=== PATIENT | male | born 1940 | race Caucasian/White ===

== ENCOUNTER 2022-01-30 13:23 | Inpatient (IN) | payer MEDICARE, OTHER ==
[~2022-01-30] VITALS: Ht 162.6 cm; Wt 63.5 kg
--- NOTE | 2022-01-30 13:35 | NUR ---
, at bedside to examine pt.
[2022-01-30] MEDS ORDERED: SPIR25TA6 PO (13:51)
[2022-01-30] MEDS ORDERED: LOSA100T31 PO (13:51)
[2022-01-30] MEDS ORDERED: COLC0.6C3 PO (13:51)
[2022-01-30] MEDS ORDERED: NITR0.4T48 SL (13:51)
[2022-01-30] MEDS ORDERED: METH2.5T PO (13:51)
[2022-01-30] MEDS ORDERED: AMLO10TA59 PO (13:51)
[2022-01-30] MEDS ORDERED: CARV12.52 PO (13:51)
[2022-01-30] MEDS ORDERED: EZET10TA15 PO (13:51)
[2022-01-30] MEDS ORDERED: CLON0.1T PO (13:51)
[2022-01-30] MEDS ORDERED: CLOP75TA15 PO (13:51)
[2022-01-30] MEDS ORDERED: ROSU40TA PO (13:51)
[2022-01-30] MEDS ORDERED: ASPIRIN 325 MG TABLET PO ONE (14:30)
[2022-01-30] MEDS ORDERED: FAMOTIDINE. 20 MG/2 ML VIAL IV ONE ×2 (14:30→14:36)
[2022-01-30] MEDS ORDERED: LIDOCAINE VISCUS 2% 15 ML UDC MM ONE (14:30)
[2022-01-30] MEDS ORDERED: MAG HYDROX/AL HYDROX/SIMETH 30 ML LIQUID UDC PO ONE (14:30)
[2022-01-30 14:34] LABS: HEMATOCRIT 42.2 % (36.7-47.1); MEAN CORPUSCULAR VOLUME 90.9 fL (73.0-96.2); PLATELET COUNT (AUTO) 218 K/uL (152-348)
[2022-01-30] MEDS ORDERED: ACETAMINOPHEN ES 500 MG TABLET ONE (14:36)
[2022-01-30] MEDS ORDERED: LIDOCAINE VISCUS 2% 15 ML UDC ONE (14:37)
[2022-01-30] MEDS ORDERED: ASPIRIN 325 MG TABLET ONE (14:37)
[2022-01-30] MEDS ORDERED: MAG HYDROX/AL HYDROX/SIMETH 30 ML LIQUID UDC ONE (14:37)
--- NOTE | 2022-01-30 14:39 | NUR ---
Patient taken down to CT.
[2022-01-30] MEDS ORDERED: ACETAMINOPHEN 325 MG TABLET PO ONE (14:45)
[2022-01-30] MEDS ORDERED: IV NORMAL SALINE 500 ML BAG IV ONE (14:45)
[2022-01-30 14:57] LABS: ALANINE AMINOTRANSFERASE 42 U/L (16-63); ALKALINE PHOSPHATASE 66 U/L (50-136); ASPARTATE AMINOTRANSFERASE 14 U/L (15-37); BILIRUBIN,DIRECT 0.2 mg/dL (0.0-0.2); BILIRUBIN,TOTAL 0.6 mg/dL (0.2-1.0); CARBON DIOXIDE 28 mmol/L (21-32); CHLORIDE 102 mmol/L (98-107); CREATININE 1.5 mg/dL (0.6-1.3); GLUCOSE 88 mg/dL (74-106); POTASSIUM 4.1 mmol/L (3.5-5.1); TOTAL PROTEIN, SERUM 7.6 g/dL (6.4-8.2); UREA NITROGEN, BLOOD 32 mg/dL (7-18)
[2022-01-30 15:24] LABS: *BILIRUBIN,URIN NEGATIVE (NEGATIVE); *CLARITY,URINE CLEAR (CLEAR); *COLOR,URINE YELLOW (YELLOW); *KETONES,URINE NEGATIVE (NEGATIVE); *UROBILINOGEN,URINE 0.2 E.U./dl (NORMAL); LEUKOCYTE ESTERASE ,URINE NEGATIVE (NEGATIVE); NITRITE, URINE NEGATIVE (NEGATIVE); UGLUCOSE NEGATIVE (NEGATIVE)
[2022-01-30 15:25] LABS: *BLOOD, URINE TRACE (NEGATIVE)
[2022-01-30] MEDS ORDERED: CEFTRIAXONE 1 G in IV DEXTROSE 5% 50 ML IV ONE (15:30)
[2022-01-30] MEDS ORDERED: AZITHROMYCIN IV 500 MG in IV DEXTROSE 5% 250 ML IV ONE (15:30)
[2022-01-30] MEDS ORDERED: CEFTRIAXONE /D5W 50ML IVPB **ER PYXIS IV ONE (15:52)
[2022-01-30] MEDS ORDERED: AZITHROMYCIN 500MG/ D5W 250ML IVPB **ER PYXIS ONLY IV ONE (15:53)
--- NOTE | 2022-01-30 16:16 | NUR ---
A call to [facility] message left for Admitting Dr. Eaton.
--- NOTE | 2022-01-30 16:17 | NUR ---
HR 79. sbp of 139/68, saturation of 96% on RA
--- NOTE | 2022-01-30 16:17 | NUR ---
Pt. down for chest CT.,
[2022-01-30] MEDS ORDERED: MORPHINE SULFATE 2 MG/1 ML DISP.SYRIN IV ONE (17:00)
[2022-01-30] MEDS ORDERED: MORPHINE SULFATE 2 MG/1 ML DISP.SYRIN ONE (17:05)
--- NOTE | 2022-01-30 17:13 | NUR ---
Telephone report given to Sarkis Elias all system covered. Awaiting for covid results to be admitted.
[2022-01-30 17:19] LABS: BACTERIA,URINE NONE SEEN /HPF (NONE SEEN); RBC,URINE 0-3 /HPF (0-3); SQUAMOUS EPITHELIAL CELL,UR NONE SEEN /HPF (NONE SEEN); WBC,URINE 0-3 /HPF (0-3)
[2022-01-30] MEDS ORDERED: CLONIDINE HCL 0.1 MG TABLET PO PRN (17:30)
[2022-01-30] MEDS ORDERED: ONDANSETRON 4 MG/2 ML VIAL IV PRN (17:30)
[2022-01-30] MEDS ORDERED: ACETAMINOPHEN 325 MG TABLET PO PRN (17:30)
[2022-01-30] MEDS ORDERED: NITROGLYCERIN 0.4 MG/TAB BOTTLE SL PRN (17:30)
[2022-01-30] MEDS ORDERED: REMEDY ESSENTIAL ZINC PASTE 113 GM TP PRN (17:30)
[2022-01-30] MEDS ORDERED: MAGNESIUM HYDROXIDE 30 ML LIQUID UDC PO PRN (17:30)
--- NOTE | 2022-01-30 17:55 | NUR ---
patient taken up to room 304 got situated in bed with help of rn's on the floor. transfer un-eventfull. SBP of 121/58 HR of 74 saturation 96% on RA.
[2022-01-30] MEDS ORDERED: ESOM40CA PO (18:05)
[2022-01-30] MEDS ORDERED: ERGO500040 PO (18:05)
--- NOTE | 2022-01-30 18:15 | NUR ---
RECEIVED PATIENT FOR ADMISSION 81 YEARS OLD TO ROOM 304 PLACED INTO BED FIXED AND MADE COMFORTABLE PATIENT IS ALERT AND ORIENTED STATED HAD PAIN MEDICATIONS IN THE ED DEPT BUT THE PAIN IS NOT COMPLETELY GONE WILL REASSESS ON ROOM AIR AFEBRILE ORDERS ALREADY PLACED BY DR MORENO DAUGHTER AT THE BEDSIDE ORIENTED THEM TO ROOM AND FACILITY PROTOCOL MADE COMFORTABLE WILL CONTINUE TO OBSERVE.
[2022-01-30 18:46] VITALS: BP 127/52
[2022-01-30] MEDS: COLCHICINE 0.6 MG TABLET PO SCH (20:23)
[2022-01-30] MEDS ORDERED: MORPHINE SULFATE 2 MG/1 ML DISP.SYRIN IV PRN (20:30)
[2022-01-30] MEDS ORDERED: ATORVASTATIN 40 MG TABLET PO SCH (21:00)
--- NOTE | 2022-01-30 21:01 | NUR ---
Patient in bed awake and able to make needs known.ON Ra.No s/s of distress noted. c/o abdominal pain 04/15. notified with NO received. Morphine Iv given. Iv on left Ac infiltrated. Inserted new IV line on left Fa 22 g with good blood return .Tolerated well. Pain subsided. Call light with in reach. Will continue to monitor.Family members at bedside. Reminded them about the visiting hours policy.Verbalized understanding.
[2022-01-31 00:07] VITALS: BP 100/42
[2022-01-31 00:17] VITALS: BP 126/57
[2022-01-31 06:38] VITALS: BP 130/63
[2022-01-31 06:54] LABS: HEMATOCRIT 34.9 % (36.7-47.1); MEAN CORPUSCULAR HEMOGLOBIN 31.4 uug (23.8-33.4); MEAN CORPUSCULAR VOLUME 90.9 fL (73.0-96.2); PLATELET COUNT (AUTO) 187 K/uL (152-348)
[2022-01-31] MEDS ORDERED: PANTOPRAZOLE SODIUM 40 MG TABLET.DR PO SCH (07:00)
[2022-01-31 07:23] LABS: CARBON DIOXIDE 28 mmol/L (21-32); CHLORIDE 102 mmol/L (98-107); CREATININE 1.7 mg/dL (0.6-1.3); GLUCOSE 91 mg/dL (74-106); PHOSPHOROUS 3.3 mg/dL (2.5-4.9); POTASSIUM 4.4 mmol/L (3.5-5.1); UREA NITROGEN, BLOOD 32 mg/dL (7-18)
--- NOTE | 2022-01-31 07:30 | NUR ---
RESTING COMFORTABLY IN BED AWAKE ALERT AND ORIENTED X3 DENIES PAIN OR SOB. SR 66/MIN ON MONITOR. SEEN BY HOSPITALIST, SAID PLAN DC THIS PM IF CLEARED FROM CARDIAC STANDPOINT
[2022-01-31] MEDS ORDERED: CARVEDILOL 12.5 MG TABLET PO SCH ×2 (08:00→09:00)
[2022-01-31] MEDS: COLCHICINE 0.6 MG TABLET PO SCH (08:31)
[2022-01-31 08:32] VITALS: BP 152/61
[2022-01-31] MEDS ORDERED: AMLODIPINE 10 MG TABLET PO SCH (09:00)
[2022-01-31] MEDS ORDERED: AZITHROMYCIN 250 MG TABLET PO SCH (09:00)
[2022-01-31] MEDS ORDERED: LOSARTAN POTASSIUM 50 MG TABLET PO SCH (09:00)
[2022-01-31] MEDS ORDERED: Medication Not On Formulary EA (Rosuvastatin Calcium (Crestor) 1 TAB) PO SCH (09:00)
[2022-01-31] MEDS ORDERED: METHOTREXATE SODIUM 2.5 MG TABLET PO SCH (09:00)
[2022-01-31] MEDS ORDERED: EZETIMIBE 10 MG TABLET PO SCH (09:00)
[2022-01-31] MEDS ORDERED: Medication Not On Formulary EA (Losartan Potassium 1 TAB) PO SCH (09:00)
[2022-01-31] MEDS ORDERED: CLOPIDOGREL 75 MG TABLET PO SCH (09:00)
[2022-01-31] MEDS ORDERED: COLCHICINE 0.6 MG TABLET PO SCH (09:00)
[2022-01-31] MEDS ORDERED: Medication Not On Formulary EA (Colchicine 0.6 MG) PO SCH (09:00)
--- NOTE | 2022-01-31 10:00 | NUR ---
SEEN BY HOSPITALIST AND [facility]ER BOTH AGREED TO BE DISCHARGE, ORDERS GIVEN SPOKE WITH FAMILY
[2022-01-31 11:56] LABS: *BILIRUBIN,URIN NEGATIVE (NEGATIVE); *CLARITY,URINE CLEAR (CLEAR); *COLOR,URINE YELLOW (YELLOW); *KETONES,URINE NEGATIVE (NEGATIVE); *UROBILINOGEN,URINE 0.2 E.U./dl (NORMAL); LEUKOCYTE ESTERASE ,URINE NEGATIVE (NEGATIVE); NITRITE, URINE NEGATIVE (NEGATIVE); UGLUCOSE NEGATIVE (NEGATIVE)
[2022-01-31 12:04] LABS: *CREATININE,URINE 44.4 mg/dL (30-125); *URINE TOTAL PROTEIN RANDOM 15.9 mg/dL (<150/24HR)
[2022-01-31 13:25] LABS: *BLOOD, URINE TRACE (NEGATIVE)
--- NOTE | 2022-01-31 14:44 | NUR ---
SPOKE WITH DAUGHTER SAID WILL BLADDER BLOWER PATIENT AT 1500. PATIENT STABLE DENIES PAIN OR SOB
--- NOTE | 2022-01-31 14:56 | NUR ---
DISCHARGE HOME STABLE ACCOMPANIED BY FAMILY MEDICATION AND FOLLOW-UP INSTRUCTION GIVEN.
[2022-01-31] MEDS ORDERED: CEFTRIAXONE 1 G in IV DEXTROSE 5% 50 ML IV SCH (17:00)
[2022-01-31 22:32] LABS: BACTERIA,URINE NONE SEEN /HPF (NONE SEEN); RBC,URINE 0-3 /HPF (0-3); SQUAMOUS EPITHELIAL CELL,UR FEW /HPF (NONE SEEN); WBC,URINE NONE SEEN /HPF (0-3)
[2022-02-01] MEDS ORDERED: SPIRONOLACTONE 25 MG TABLET PO SCH (09:00)
[2022-02-06] MEDS ORDERED: ERGOCALCIFEROL 50,000 UNIT CAPSULE PO SCH (09:00)
== END 2022-01-31 14:58 | disposition home or self-care (01) | DRG 546 ==
LOC: ER 13:23 → TELE3 17:48 → MEDSURG3 01-31 10:04
PROVIDERS: ADMIT Family Medicine; ATTEND Family Medicine
DX: M04.1 Periodic fever syndromes (principal); R65.10 Systemic inflammatory response syndrome (SIRS) of non-infectious origin without acute organ dysfunction; I12.9 Hypertensive chronic kidney disease with stage 1 through stage 4 chronic kidney disease, or unspecified chronic kidney disease; N18.9 Chronic kidney disease, unspecified; I25.10 Atherosclerotic heart disease of native coronary artery without angina pectoris; Z95.5 Presence of coronary angioplasty implant and graft; M10.9 Gout, unspecified; E78.5 Hyperlipidemia, unspecified; M19.90 Unspecified osteoarthritis, unspecified site; M06.9 Rheumatoid arthritis, unspecified; M45.9 Ankylosing spondylitis of unspecified sites in spine; Z20.822 Contact with and (suspected) exposure to COVID-19
CPT/HCPCS: 36415; 71045; 71250; 72125; 76770; 83605; 83735; 84100; 84156; 84300; 84484; 85025; 85730; 87040; 87086; 93005; A4663; A9150; G0378; J0456; J0696; J2270; J3490; J7040; J8610; Q0144

== ENCOUNTER 2024-08-20 19:52 | Inpatient (IN) | payer MEDICARE, OTHER ==
[~2024-08-20] VITALS: Ht 162.6 cm; Wt 68.9 kg
[~2024-08-20 19:52] MED LIST: AMLO10TA59 PO; CARV12.52 PO; CLON0.1T PO; CLOP75TA15 PO; COLC0.6C3 PO; ERGO500040 PO; ESOM40CA PO; EZET10TA15 PO; LOSA100T31 PO; METH2.5T PO; NITR0.4T48 SL; ROSU40TA PO; SPIR25TA6 PO
[2024-08-20 20:51] LABS: BASOPHILS % (AUTO) 0.3 % (0.0-2.0); HEMATOCRIT 37.5 % (36.7-47.1); HEMOGLOBIN 12.9 g/dL (12.5-16.3); LYMPHOCYTES # (AUTO) 0.7 K/uL (0.8-4.8); LYMPHOCYTES % (AUTO) 6.5 % (20.5-51.5); MEAN CORPUSCULAR HEMOGLOBIN 30.9 uug (23.8-33.4); MEAN CORPUSCULAR HGB CONC 34 g/dL (32.5-36.3); MEAN CORPUSCULAR VOLUME 89.7 fL (73.0-96.2); MONOCYTES # (AUTO) 1.1 K/uL (0.1-1.30); MONOCYTES % (AUTO) 9.5 % (0.0-11.0); NEUTROPHILS # (AUTO) 9.5 K/uL (1.8-8.9); NEUTROPHILS % (AUTO) 83.7 % (38.5-71.5); PLATELET COUNT (AUTO) 153 K/uL (152-348); RED BLOOD CELL COUNT(AUTO) 4.18 MIL/uL (4.06-5.63); RED CELL DISTRIBUTION WIDTH 14.7 % (12.1-16.2); WHITE BLOOD COUNT (AUTO) 11.3 K/uL (3.6-10.2)
[2024-08-20 20:56] LABS: DIFFERENTIAL COMMENT 1
[2024-08-20 20:59] LABS: CALCIUM 8.7 mg/dL (8.5-10.1); CARBON DIOXIDE 24 mmol/L (21-32); CHLORIDE 97 mmol/L (98-107); CREATININE 1.5 mg/dL (0.6-1.3); GLUCOSE 152 mg/dL (74-106); POTASSIUM 3.4 mmol/L (3.5-5.1); SODIUM SERUM 130 mmol/L (136-145); UREA NITROGEN, BLOOD 22 mg/dL (7-18)
[2024-08-20 21:14] LABS: ALANINE AMINOTRANSFERASE 32 U/L (16-63); ALBUMIN 3.4 g/dL (3.4-5.0); ALKALINE PHOSPHATASE 59 U/L (50-136); ASPARTATE AMINOTRANSFERASE 21 U/L (15-37); BILIRUBIN,TOTAL 0.7 mg/dL (0.2-1.0); NT-PRO BNP 5725 pg/mL (0-125); TOTAL PROTEIN, SERUM 6.8 g/dL (6.4-8.2)
[2024-08-20] MEDS ORDERED: ONDANSETRON 4 MG/2 ML VIAL IV PRN (23:30)
[2024-08-20] MEDS: POTASSIUM CHLORIDE 20 MEQ TAB.PRT.SR PO ONE (23:30)
[2024-08-20] MEDS ORDERED: MAGNESIUM HYDROXIDE 30 ML LIQUID UDC PO PRN (23:30)
[2024-08-20] MEDS ORDERED: REMEDY ESSENTIAL ZINC PASTE 113 GM TP PRN (23:30)
[2024-08-20] MEDS ORDERED: NITROGLYCERIN 0.4 MG/TAB BOTTLE SL SCH (23:45)
[2024-08-21] VITALS (13 sets, daily range): BP systolic 95–165; BP diastolic 57–74; TEMP 97.1–98.3; O2SAT 87–99
[2024-08-21] MEDS ORDERED: CEFTRIAXONE /D5W 50ML IVPB **ER PYXIS IV ONE (01:57)
[2024-08-21] MEDS: CEFTRIAXONE 1 G in IV DEXTROSE 5% 50 ML IV SCH (02:27)
[2024-08-21] MEDS: POTASSIUM CHLORIDE 20 MEQ TAB.PRT.SR PO ONE (02:27)
[2024-08-21] MEDS ORDERED: NITROGLYCERIN 0.4 MG/TAB BOTTLE SL PRN (05:02)
[2024-08-21] MEDS: PANTOPRAZOLE SODIUM 40 MG TABLET.DR PO SCH ×2 (06:31→17:23)
[2024-08-21] MEDS ORDERED: SPIRONOLACTONE 25 MG TABLET PO SCH (09:00)
[2024-08-21] MEDS ORDERED: CLOPIDOGREL 75 MG TABLET PO SCH (09:00)
[2024-08-21 09:06] LABS: BASOPHILS % (AUTO) 0.2 % (0.0-2.0); HEMOGLOBIN 13.7 g/dL (12.5-16.3); LYMPHOCYTES # (AUTO) 1.7 K/uL (0.8-4.8); LYMPHOCYTES % (AUTO) 22.2 % (20.5-51.5); MEAN CORPUSCULAR HEMOGLOBIN 31.5 uug (23.8-33.4); MEAN CORPUSCULAR HGB CONC 35 g/dL (32.5-36.3); MEAN CORPUSCULAR VOLUME 89.9 fL (73.0-96.2); MONOCYTES # (AUTO) 1.4 K/uL (0.1-1.30); NEUTROPHILS # (AUTO) 4.6 K/uL (1.8-8.9); NEUTROPHILS % (AUTO) 59.6 % (38.5-71.5); PLATELET COUNT (AUTO) 161 K/uL (152-348); RED BLOOD CELL COUNT(AUTO) 4.34 MIL/uL (4.06-5.63); RED CELL DISTRIBUTION WIDTH 15.1 % (12.1-16.2); WHITE BLOOD COUNT (AUTO) 7.7 K/uL (3.6-10.2)
[2024-08-21 09:37] LABS: CARBON DIOXIDE 26 mmol/L (21-32); CHLORIDE 98 mmol/L (98-107); CREATININE 1.5 mg/dL (0.6-1.3); GLUCOSE 109 mg/dL (74-106); MAGNESIUM 2.1 mg/dL (1.8-2.4); PHOSPHOROUS 2.8 mg/dL (2.5-4.9); POTASSIUM 3.7 mmol/L (3.5-5.1); SODIUM SERUM 134 mmol/L (136-145); UREA NITROGEN, BLOOD 21 mg/dL (7-18)
[2024-08-21 09:54] LABS: DIFFERENTIAL COMMENT 1
[2024-08-21] MEDS: FUROSEMIDE 40 MG/4 ML VIAL IV ONE (10:01)
[2024-08-21] MEDS: EZETIMIBE 10 MG TABLET PO SCH (10:07)
[2024-08-21] MEDS: CARVEDILOL 12.5 MG TABLET PO SCH (10:07)
[2024-08-21] MEDS: LOSARTAN POTASSIUM 50 MG TABLET PO SCH (10:07)
[2024-08-21] MEDS: AMLODIPINE 10 MG TABLET PO SCH (10:07)
[2024-08-21] MEDS: COLCHICINE 0.6 MG TABLET PO SCH (10:08)
[2024-08-21] MEDS: ALBUTEROL SULFATE 2.5 MG/3 ML NEBU NEB STA (10:19)
[2024-08-21] MEDS: ENOXAPARIN SODIUM 40 MG/0.4 ML DISP.SYRIN SQ SCH (10:35)
[2024-08-21] MEDS: IPRATROPIUM BROMIDE 0.5 MG/2.5 ML NEBU NEB SCH (11:30)
[2024-08-21] MEDS: ALBUTEROL SULFATE 2.5 MG/3 ML NEBU NEB SCH (11:30)
[2024-08-21] MEDS: ACETAMINOPHEN 325 MG TABLET PO PRN (12:43)
[2024-08-21 12:56] LABS: ANISOCYTOSIS 1+; LYMPHOCYTES % (MANUAL) 26 % (20-40); MONOCYTES % (MANUAL) 16 % (2-10); NEUTROPHILS % (MANUAL) 58 % (42-75); PLATELET ESTIMATE ADEQUATE
[2024-08-21] MEDS: methylPREDNISolone SOD SUCC 125 MG/2 ML VIAL IV ONE (13:08)
[2024-08-21] MEDS: DOXYCYCLINE HYCLATE IV 100 MG in IV DEXTROSE 5% 100 ML IV SCH (13:47)
[2024-08-21] MEDS: ATORVASTATIN 40 MG TABLET PO SCH (21:27)
[2024-08-21] MEDS: methylPREDNISolone SOD SUCC 40 MG/ML VIAL IV SCH (21:27)
[2024-08-22] VITALS (21 sets, daily range): BP systolic 111–191; BP diastolic 55–90; TEMP 97.1–98.6; O2SAT 93–99
[2024-08-22] MEDS: CLOPIDOGREL 75 MG TABLET PO SCH (08:55)
[2024-08-22] MEDS ORDERED: SPIRONOLACTONE 25 MG TABLET PO SCH (09:00)
[2024-08-22 12:05] LABS: *BILIRUBIN,URIN NEGATIVE (NEGATIVE); *BLOOD, URINE 1+ (NEGATIVE); *CLARITY,URINE CLEAR (CLEAR); *COLOR,URINE YELLOW (YELLOW); *KETONES,URINE NEGATIVE (NEGATIVE); *PROTEIN,URINE 2+ (NEGATIVE); *UROBILINOGEN,URINE 0.2 E.U./dl (NORMAL); LEUKOCYTE ESTERASE ,URINE NEGATIVE (NEGATIVE); NITRITE, URINE NEGATIVE (NEGATIVE); PH,URINE 5.5 (5.0-8.0); UGLUCOSE NEGATIVE (NEGATIVE)
[2024-08-22 12:15] LABS: RBC,URINE 0-3 /HPF (0-3); SQUAMOUS EPITHELIAL CELL,UR FEW /HPF (NONE SEEN); WBC,URINE NONE SEEN /HPF (0-3)
[2024-08-22] MEDS: AMLODIPINE 10 MG TABLET PO ONE (20:45)
[2024-08-22] MEDS: CARVEDILOL 12.5 MG TABLET PO ONE (20:45)
[2024-08-22] MEDS: LOSARTAN POTASSIUM 50 MG TABLET PO ONE (21:00)
[2024-08-23] VITALS (12 sets, daily range): BP systolic 107–166; BP diastolic 59–76; TEMP 97.3–98; O2SAT 94–99
[2024-08-23 08:37] LABS: BASOPHILS % (AUTO) 0.3 % (0.0-2.0); HEMATOCRIT 37.3 % (36.7-47.1); HEMOGLOBIN 13.1 g/dL (12.5-16.3); LYMPHOCYTES # (AUTO) 1.1 K/uL (0.8-4.8); LYMPHOCYTES % (AUTO) 17.5 % (20.5-51.5); MEAN CORPUSCULAR HEMOGLOBIN 31.2 uug (23.8-33.4); MEAN CORPUSCULAR HGB CONC 35 g/dL (32.5-36.3); MONOCYTES # (AUTO) 0.5 K/uL (0.1-1.30); MONOCYTES % (AUTO) 7.4 % (0.0-11.0); NEUTROPHILS # (AUTO) 4.6 K/uL (1.8-8.9); NEUTROPHILS % (AUTO) 74.8 % (38.5-71.5); PLATELET COUNT (AUTO) 174 K/uL (152-348); RED BLOOD CELL COUNT(AUTO) 4.19 MIL/uL (4.06-5.63); RED CELL DISTRIBUTION WIDTH 14.8 % (12.1-16.2); WHITE BLOOD COUNT (AUTO) 6.1 K/uL (3.6-10.2)
[2024-08-23 08:50] LABS: CALCIUM 8.3 mg/dL (8.5-10.1); CARBON DIOXIDE 25 mmol/L (21-32); CHLORIDE 98 mmol/L (98-107); CREATININE 1.8 mg/dL (0.6-1.3); GLUCOSE 165 mg/dL (74-106); POTASSIUM 3.9 mmol/L (3.5-5.1); SODIUM SERUM 133 mmol/L (136-145); UREA NITROGEN, BLOOD 44 mg/dL (7-18)
[2024-08-23 08:52] LABS: DIFFERENTIAL COMMENT 1
[2024-08-23] MEDS: ENSURE ENLIVE (VAN) 240 ML LIQUID PO SCH (09:00)
[2024-08-23] MEDS: CLONIDINE HCL 0.1 MG TABLET PO PRN (09:07)
[2024-08-23] MEDS ORDERED: ONDANSETRON 4 MG/2 ML VIAL IV PRN (16:45)
[2024-08-23 17:15] LABS: *BILIRUBIN,URIN NEGATIVE (NEGATIVE); *BLOOD, URINE NEGATIVE (NEGATIVE); *CLARITY,URINE CLEAR (CLEAR); *COLOR,URINE YELLOW (YELLOW); *KETONES,URINE NEGATIVE (NEGATIVE); *PROTEIN,URINE 2+ (NEGATIVE); *UROBILINOGEN,URINE 0.2 E.U./dl (NORMAL); LEUKOCYTE ESTERASE ,URINE NEGATIVE (NEGATIVE); NITRITE, URINE NEGATIVE (NEGATIVE); PH,URINE 5.5 (5.0-8.0); UGLUCOSE NEGATIVE (NEGATIVE)
[2024-08-23 17:21] LABS: *CREATININE,URINE 67.7 mg/dL (30-125); *URINE TOTAL PROTEIN RANDOM 81.5 mg/dL (<150/24HR)
[2024-08-23 17:54] LABS: BACTERIA,URINE NONE SEEN /HPF (NONE SEEN); RBC,URINE NONE SEEN /HPF (0-3); SQUAMOUS EPITHELIAL CELL,UR FEW /HPF (NONE SEEN); WBC,URINE 0-3 /HPF (0-3)
[2024-08-24] VITALS (11 sets, daily range): BP systolic 112–154; BP diastolic 50–69; TEMP 97.6–97.9; O2SAT 91–99
[2024-08-24 06:52] LABS: BASOPHILS % (AUTO) 0.4 % (0.0-2.0); EOSINOPHILS % (AUTO) 0.3 % (0.0-7.0); HEMATOCRIT 37.3 % (36.7-47.1); HEMOGLOBIN 13.2 g/dL (12.5-16.3); LYMPHOCYTES # (AUTO) 0.9 K/uL (0.8-4.8); LYMPHOCYTES % (AUTO) 17.3 % (20.5-51.5); MEAN CORPUSCULAR HEMOGLOBIN 31.6 uug (23.8-33.4); MEAN CORPUSCULAR HGB CONC 35 g/dL (32.5-36.3); MEAN CORPUSCULAR VOLUME 89.5 fL (73.0-96.2); MONOCYTES # (AUTO) 0.4 K/uL (0.1-1.30); MONOCYTES % (AUTO) 7.1 % (0.0-11.0); NEUTROPHILS # (AUTO) 3.9 K/uL (1.8-8.9); NEUTROPHILS % (AUTO) 74.9 % (38.5-71.5); PLATELET COUNT (AUTO) 180 K/uL (152-348); RED BLOOD CELL COUNT(AUTO) 4.18 MIL/uL (4.06-5.63); RED CELL DISTRIBUTION WIDTH 14.6 % (12.1-16.2); WHITE BLOOD COUNT (AUTO) 5.2 K/uL (3.6-10.2)
[2024-08-24 07:08] LABS: ALANINE AMINOTRANSFERASE 84 U/L (16-63); ALBUMIN 2.9 g/dL (3.4-5.0); ALKALINE PHOSPHATASE 53 U/L (50-136); ASPARTATE AMINOTRANSFERASE 54 U/L (15-37); BILIRUBIN,TOTAL 0.5 mg/dL (0.2-1.0); CALCIUM 8.4 mg/dL (8.5-10.1); CARBON DIOXIDE 25 mmol/L (21-32); CHLORIDE 99 mmol/L (98-107); CREATINE KINASE, TOTAL 58 U/L (39-308); GLUCOSE 173 mg/dL (74-106); MAGNESIUM 1.7 mg/dL (1.8-2.4); PHOSPHOROUS 4.3 mg/dL (2.5-4.9); SODIUM SERUM 135 mmol/L (136-145); TOTAL PROTEIN, SERUM 6.5 g/dL (6.4-8.2); UREA NITROGEN, BLOOD 46 mg/dL (7-18)
[2024-08-24 07:16] LABS: DIFFERENTIAL COMMENT 1
[2024-08-24] MEDS: ENOXAPARIN SODIUM 30 MG/0.3 ML DISP.SYRIN SQ SCH (08:52)
[2024-08-24] MEDS: MAGNESIUM OXIDE 400 MG TABLET PO ONE (10:18)
[2024-08-24] MEDS: ALBUMIN HUMAN 25% 100 ML IV SCH (10:20)
[2024-08-24] MEDS: methylPREDNISolone SOD SUCC 40 MG/ML VIAL IV SCH (10:40)
[2024-08-24] MEDS ORDERED: DOXY-326 PO (11:59)
[2024-08-24] MEDS ORDERED: IPRA4AER IH (11:59)
[2024-08-24] MEDS ORDERED: PANT40TA49 PO (11:59)
[2024-08-24] MEDS ORDERED: PRED20TA PO (11:59)
[2024-08-25 06:07] LABS: PTH, INTACT 43 pg/mL (15-65)
== END 2024-08-24 13:30 | disposition home or self-care (01) | DRG 871 ==
LOC: ER 19:52 → TELE3 23:25
PROVIDERS: ADMIT Nurse Practitioner Acute Care; ATTEND Nurse Practitioner Acute Care
DX: A41.9 Sepsis, unspecified organism (principal); I21.A1 Myocardial infarction type 2; I50.31 Acute diastolic (congestive) heart failure; J15.9 Unspecified bacterial pneumonia; J96.01 Acute respiratory failure with hypoxia; I13.0 Hypertensive heart and chronic kidney disease with heart failure and stage 1 through stage 4 chronic kidney disease, or unspecified chronic kidney disease; J44.0 Chronic obstructive pulmonary disease with (acute) lower respiratory infection; J44.1 Chronic obstructive pulmonary disease with (acute) exacerbation; E87.1 Hypo-osmolality and hyponatremia; N17.9 Acute kidney failure, unspecified; M06.9 Rheumatoid arthritis, unspecified; Z95.5 Presence of coronary angioplasty implant and graft; Z87.891 Personal history of nicotine dependence; M04.1 Periodic fever syndromes; N18.31 Chronic kidney disease, stage 3a; I25.10 Atherosclerotic heart disease of native coronary artery without angina pectoris; E87.6 Hypokalemia; D64.9 Anemia, unspecified; E78.5 Hyperlipidemia, unspecified; M89.8X9 Other specified disorders of bone, unspecified site; Z79.899 Other long term (current) drug therapy; Z86.73 Personal history of transient ischemic attack (TIA), and cerebral infarction without residual deficits; R73.9 Hyperglycemia, unspecified; M45.2 Ankylosing spondylitis of cervical region
CPT/HCPCS: 36415; 70030-TC; 71045; 76770; 83605; 83735; 83970; 84100; 84155; 84165; 84300; 84443; 84484; 85025; 85651; 87040; 93307; 94640; A4606; A4663; G0378; J0696; J1650; J1940; J2919; J3490; J3590; P9047